=== PATIENT | female | born 1955 | race Caucasian/White ===

== ENCOUNTER 2017-09-22 11:44 | Day surgery (SDC) | payer BC ==
[~2017-09-22 11:44] MED LIST: Lactated Ringers 1,000 ML IV SCH
--- NOTE | 2017-09-22 12:22 | PCM.PREANE ---
Preanesthetic Assessment - Anesthesia/Transfusion/Family Hx Anesthesia History: Prior Anesthesia Without Reaction Family History of Anesthesia Reaction: No Transfusion History: No Prior Transfusion(s) - Review of Systems General: No Symptoms Pulmonary: No Symptoms Cardiovascular: No Symptoms Neurological: No Symptoms Other: Reports: None - Physical Assessment NPO Status Date: 09/21/17 O2 Sat by Pulse Oximetry: 100 Respiratory Rate: 16 Vital Signs: Last Vital Signs Temp 36.7 C 09/22/17 12:05 Pulse 71 09/22/17 12:05 Resp 16 09/22/17 12:05 BP 140/84 09/22/17 12:05 Pulse Ox 100 09/22/17 12:05 Height: 1.63 m Weight: 51.71 kg ASA Class: 3 Mental Status: Alert & Oriented x3 Airway Class: Mallampati = 2 Dentition: Reports: Dentures ROM/Head Extension: Full Lungs: Clear to Auscultation, Normal Respiratory Effort Cardiovascular: Regular Rate, Regular Rhythm - Allergies Allergies/Adverse Reactions: Allergies Allergy/AdvReac Type Severity Reaction Status Date / Time No Known Allergies Allergy Verified 09/17/17 14:13 - Acknowledgements Anesthesia Type Planned: MAC Pt an Appropriate Candidate for the Planned Anesthesia: Yes Alternatives and Risks of Anesthesia Discussed w Pt/Guardian: Yes Pt/Guardian Understands and Agrees with Anesthesia Plan: Yes Additional Comments: PMH: CAD with stent to RCA about 2 years ago. Off plavix x 1 yr, last aspirin was yeswterday, Has hx of cardiomyopathy and CKD3, both of which have resolved. PreAnesthesia Questionnaire HEENT History: Reports: Other (See Below) Other HEENT History: wears glasses, has upper and lower dentures Cardiovascular History: Reports: Heart Failure, High Cholesterol, Hypertension, Stents Other Cardiovascular History: "mitral valve problem" Respiratory History: Reports: Asthma Gastrointestinal History: Reports: Chronic Constipation, Colon Polyp, Hepatitis , Other (See Below) Other Gastrointestinal History: dysphagia hx of Hepatitis B Genitourinary History: Reports: None [employer] History: Reports: Other OB/BYN History: "spotting" for approximately 1.5 years Musculoskeletal History: Reports: Arthritis, Back Pain, Chronic, Fracture, Neck Pain, Chronic Other Musculoskeletal History: hx of fx pelvis Neurological History: Reports: Migraines Psychiatric History: Reports: None Endocrine/Metabolic History: Reports: Osteoporosis Hematologic History: Reports: None Immunologic History: Reports: None Oncologic (Cancer) History: Reports: Other (See Below) Other Oncologic History: States was diagnosed with what was "cancer that cured itself" after having abnormal pap smear and ultrasound Dermatologic History: Reports: None - Infectious Disease History Infectious Disease History: Reports: Chicken Pox, Hepatitis B, Measles, Mumps, Rubella Other Infectious Disease History: had in past - Past Surgical History Head Surgeries/Procedures: Reports: None Cardiovascular Surgical History: Reports: Coronary Artery Stent Other Cardiovascular Surgeries/Procedures: Right Coronary Artery Stent- 2 years ago GI Surgical History: Reports: Cholecystectomy, Colonoscopy Female Surgical History: Reports: D&C, Tubal Ligation - SUBSTANCE USE Smoking Status *Q: Current Every Day Smoker Tobacco Use Within Last Twelve Months: Cigarettes Days Per Week of Alcohol Use: 0 Recreational Drug Use History: No - HOME MEDS Home Medications: Home Meds Aspirin [Halfprin] 81 mg PO DAILY 12/14/15 [History] Folic Acid/Mv,Fe,Min [Centrum Multivitamin] 1 each PO DAILY 12/14/15 [History] Calcium Carbonate [Calcium] 600 mg PO DAILY 09/17/17 [History] Carisoprodol 350 mg PO BEDTIME 09/17/17 [History] Carvedilol 25 mg PO BID 09/17/17 [History] Cyanocobalamin (Vitamin B-12) [Vitamin B-12] 1,000 mg PO DAILY 09/17/17 [History ] Lisinopril [Prinivil] 2.5 mg PO BID 09/17/17 [History] Metoclopramide HCl 10 mg PO ASDIRECTED PRN 09/17/17 [History] Naproxen Sodium [Aleve] 220 mg PO ASDIRECTED 09/17/17 [History] Ranitidine HCl 150 mg PO DAILY 09/17/17 [History] Spironolactone [Aldactone] 12.5 mg PO DAILY 09/17/17 [History] atorvaSTATin Calcium [Atorvastatin Calcium] 20 mg PO BEDTIME 09/17/17 [History] oxyCODONE HCl/Acetaminophen [Percocet 10-325 mg Tablet] 1 - 2 tab PO Q4HR PRN [History] - CURRENT (IN HOUSE) MEDS Current Meds: Current Medications Lactated Ringer's (Ringers, Lactated) 1,000 mls @ 125 mls/hr IV ASDIRECTED REPLACED BY [facility] Last Admin: 09/22/17 12:06 Dose: 125 mls/hr
[2017-09-22] MEDS ORDERED: fentaNYL 100 MCG/2 ML SDV ONE (13:51)
[2017-09-22] MEDS ORDERED: Lidocaine 2% 5 ML SDV ONE (13:51)
[2017-09-22] MEDS ORDERED: Propofol 200 MG/20 ML SDV ONE (13:51)
[2017-09-22] MEDS ORDERED: Midazolam 1 MG/ML 2 ML SDV ONE (13:51)
[2017-09-22] MEDS ORDERED: Ondansetron 4 MG Tab.DIS PO PRN (15:11)
--- NOTE | 2017-09-22 15:14 | PCM.OPNOTE ---
- General Post-Op/Procedure Note Date of Surgery/Procedure: 09/22/17 Operative Procedure(s): Esophagogastroduodenoscopy with biopsy. Colonoscopy. Pre Op Diagnosis: Dysphagia. Personal history of colon polyps. Post-Op Diagnosis: Mild gastritis with a hiatal hernia. Sigmoid diverticulosis. Anesthesia Technique: MAC (ASA III) Primary Surgeon: Jamil Wiggins Mesh Worker: Dequan Mike Condition: Good Free Text/Narrative:: Dictation [id number] CPT CODE [id number]
[2017-09-22] MEDS ORDERED: Lactated Ringers 1,000 ML IV SCH (15:15)
--- NOTE | 2017-09-22 15:31 | PCM.POSTAN ---
POST ANESTHESIA ASSESSMENT - MENTAL STATUS Mental Status: Alert, Oriented Free Text/Narrative:: awake and alert to her phase II. - RESPIRATORY Respiratory Status: Respiratory Rate WNL, Airway Patent, O2 Saturation Stable - CARDIOVASCULAR CV Status: Pulse Rate WNL, Blood Pressure Stable - GASTROINTESTINAL GI Status: No Symptoms - POST OP HYDRATION Hydration Status: Adequate & Stable
--- NOTE | 2017-09-22 15:45 | PCM48HPAN ---
Post Anesthesia Note - EVALUATION WITHIN 48HRS OF ANESTHETIC Vital Signs in Normal Range: Yes Patient Participated in Evaluation: Yes Respiratory Function Stable: Yes Airway Patent: Yes Cardiovascular Function Stable: Yes Hydration Status Stable: Yes Pain Control Satisfactory: Yes Nausea and Vomiting Control Satisfactory: Yes Mental Status Recovered: Yes Resp Rate: 12 - COMMENTS/OBSERVATIONS Free Text/Narrative:: Raised question of some discomfort on right abdomen...informed Dr. Wiggins. Patient stated she had this pain before the procedure. Should be ready for discharge home soon.
[2017-09-22 15:48] VITALS: BP 152/79
--- NOTE | 2017-09-23 07:54 | OR ---
SURGEON: Jamil Wiggins M.D. DATE OF PROCEDURE: 09/22/2017 OPERATION PERFORMED: Esophagogastroduodenoscopy with biopsy. ANESTHESIA: MAC [employer] CLASSIFICATION: III. PREOPERATIVE DIAGNOSIS: Progressive dysphagia. POSTOPERATIVE DIAGNOSIS: Mild gastritis, no esophageal stricture. DESCRIPTION OF PROCEDURE: The patient was taken to the endoscopy room, positioned on the endoscopy table in the left lateral decubitus position. Time-out was called for appropriate identification of the patient and procedure. Monitored anesthesia care was provided. The bite block was placed between the patient's teeth. The gastroscope was inserted through the bite block into the oropharynx and advanced without difficulty through the esophagus and stomach into the duodenum, where examination was carried out in a retrograde fashion. The duodenum shows no acute inflammatory changes or ulcerations. Stomach does show [id number] gastritis. No ulcerations were noted. Biopsies of the stomach were obtained to look for the presence of Helicobacter pylori. The gastroscope was then retroflexed to visualize the proximal stomach, where a small hiatal hernia was seen. The gastroscope was then straightened and slowly withdrawn. The GE junction was well defined and shows no acute inflammatory changes. The esophagus demonstrated good contractility. No mid or proximal lesions were identified, and there was no esophageal stricture. The vocal cords were visualized as the scope was withdrawn and noted to move symmetrically. The gastroscope was then removed with the patient having tolerated the procedure well. Following colonoscopy, she was taken to recovery room in stable condition. MATIAS / MOIRA /[id number]
--- NOTE | 2017-09-23 07:57 | OR ---
SURGEON: Jamil Wiggins M.D. DATE OF PROCEDURE: 09/22/2017 OPERATION PERFORMED: Colonoscopy. ANESTHESIA: MAC. ASA CLASSIFICATION: III. PREOPERATIVE DIAGNOSIS: Personal history of colon polyps. POSTOPERATIVE DIAGNOSIS: Sigmoid diverticulosis. DESCRIPTION OF PROCEDURE: With the patient having completed esophagogastroduodenoscopy with biopsy, she was now prepared for colonoscopy. The colonoscope was inserted into the rectum and advanced with moderate difficulty to the cecum, where the colonoscope was retroflexed to visualize the ascending colon from below. The colonoscope was then straightened and slowly withdrawn. The cecum, ascending colon, hepatic flexure, transverse colon, splenic flexure, and descending colon showed no tumors, polyps, diverticula, or angiodysplastic changes. The prep was excellent. Sigmoid colon demonstrates numerous diverticula. No stricture, spasm, or bleeding was noted. No polyps were encountered. The colonoscope was withdrawn to the rectum and retroflexed to visualize the anal orifice from above. Again, no tumors or polyps were seen, and there were no acute hemorrhoidal changes. The colonoscope was then straightened, the rectum aspirated, and colonoscope removed. The patient tolerated the procedure well and was taken to recovery room in stable condition. MATIAS / MOIRA /[id number]
== END 2017-09-22 15:55 | disposition home or self-care (01) ==
LOC: MW.SDS 11:44
PROVIDERS: ATTEND Surgery
DX: Z12.11 Encounter for screening for malignant neoplasm of colon (principal); K29.50 Unspecified chronic gastritis without bleeding; K57.30 Diverticulosis of large intestine without perforation or abscess without bleeding; K44.9 Diaphragmatic hernia without obstruction or gangrene; I25.10 Atherosclerotic heart disease of native coronary artery without angina pectoris; G89.29 Other chronic pain; M54.9 Dorsalgia, unspecified; M54.2 Cervicalgia; M25.551 Pain in right hip; I10 Essential (primary) hypertension; E78.00 Pure hypercholesterolemia, unspecified; Z86.010 Personal history of colon polyps; Z79.82 Long term (current) use of aspirin; Z79.899 Other long term (current) drug therapy; Z87.891 Personal history of nicotine dependence
CPT/HCPCS: 43239; 45378; J2250; J3010; J7120; 00813; 88305; 88312; J2704

== ENCOUNTER 2021-07-29 12:58 | Emergency (ER) | payer BC, MEDICARE ==
[2021-07-29] MEDS ORDERED: Sodium Chloride 0.9% 1,000 ML IV ONE (14:26)
[2021-07-29] MEDS ORDERED: Ondansetron 4 MG/2 ML SDV IVPUSH ONE (14:50)
[2021-07-29] MEDS ORDERED: Ketorolac 30 MG/ML SDV IVPUSH ONE (14:50)
[2021-07-29 15:10] LABS: CORONAVIRUS COVID-19 NAA NEGATIVE (NEGATIVE); INFLUENZA A NAA NEGATIVE (NEGATIVE); INFLUENZA B NAA NEGATIVE (NEGATIVE)
[2021-07-29 15:19] LABS: BLOOD UREA NITROGEN,BUN 11 mg/dL (7.0-18.0); CARBON DIOXIDE,CO2 23.7 mmol/L (21.0-32.0); CHLORIDE,CL 103 mmol/L (98-107); GLUCOSE RANDOM 110 mg/dL (74-106); LIPASE 67 U/L (73-393); POTASSIUM,K 3.3 mmol/L (3.5-5.1); SODIUM,NA 140 mmol/L (136-145)
[2021-07-29 16:29] VITALS: BP 140/90; PULSE 90
== END 2021-07-29 16:31 | disposition home or self-care (01) ==
LOC: MW.ED 12:58
DX: K52.9 Noninfective gastroenteritis and colitis, unspecified (principal); I11.0 Hypertensive heart disease with heart failure; I50.9 Heart failure, unspecified; E78.00 Pure hypercholesterolemia, unspecified; J45.909 Unspecified asthma, uncomplicated; M19.90 Unspecified osteoarthritis, unspecified site; Z72.0 Tobacco use; Z79.82 Long term (current) use of aspirin; Z79.899 Other long term (current) drug therapy; Z20.822 Contact with and (suspected) exposure to COVID-19
CPT/HCPCS: 0240U; 36415; 71045; 80053; 83690; 85025; 96374; 96375; 99284; J1885; J2405; J7030

== ENCOUNTER 2023-03-28 07:32 | Emergency (ER) | payer BC, MEDICARE ==
[2023-03-28] MEDS ORDERED: Sodium Chloride 0.9% 1,000 ML IV ONE ×3 (07:34→07:46)
[2023-03-28] MEDS ORDERED: Rocuronium 50 MG/5 ML Vial IV ONE ×2 (07:36→09:35)
[2023-03-28] MEDS ORDERED: Etomidate 2 MG/ML 10 ML SDV IVPUSH ONE (07:36)
[2023-03-28 07:44] LABS: BASOPHILS PERCENT AUTO 0.5 % (0.0-1.5); EOSINOPHILS ABSOLUTE AUTO 0.5 K/uL (0.0-0.7); EOSINOPHILS PERCENT AUTO 8.5 % (0.0-7.0); HEMATOCRIT 43.8 % (36.0-46.0); LYMPHOCYTES PERCENT AUTO 35.5 % (16.0-40.0); MEAN CORPUSCULAR HEMOGLOBIN 32.3 pg (27.0-32.0); MEAN CORPUSCULAR HGB CONC 34.2 g/dL (31.0-37.0); MEAN CORPUSCULAR VOLUME 94.2 fL (80.0-98.0); MONOCYTES ABSOLUTE AUTO 0.3 K/uL (0.0-0.8); MONOCYTES PERCENT AUTO 5.9 % (0.0-15.0); NEUTROPHILS ABSOLUTE AUTO 2.9 K/uL (1.4-5.7); NEUTROPHILS PERCENT AUTO 49.6 % (48.0-80.0); NRBC ABSOLUTE 0 K/uL; PLATELET COUNT,PLT 138 K/uL (150-400); RED BLOOD CELL COUNT 4.65 M/uL (4.30-5.90); WHITE BLOOD CELL COUNT,WBC 5.75 K/uL (4.0-11.0)
[2023-03-28] MEDS ORDERED: Norepinephrine Bit/D5W Premix 250 ML IV SCH (07:45)
[2023-03-28] MEDS ORDERED: propofoL 100 ML IV SCH (07:45)
[2023-03-28] MEDS ORDERED: Norepinephrine Bit/D5W Premix 250 ML IV ONE (07:45)
[2023-03-28 07:54] LABS: INR 1.34 (0.86-1.11); PTT,PARTIAL THROMBOPLSTIN TIME 47.8 SEC (23.9-30.7)
[2023-03-28 08:02] LABS: A/G RATIO 1.1 (0.9-1.6); ALANINE AMINOTRANSFERASE,ALT 26 IU/L (14-63); ALBUMIN 3.3 g/dL (3.4-5.0); ALKALINE PHOSPHATASE 59 U/L (46-116); ASPARTATE AMNIOTRANSFERASE,AST 49 IU/L (15-37); BILIRUBIN TOTAL 0.5 mg/dL (0.2-1.0); BLOOD UREA NITROGEN,BUN 18 mg/dL (7.0-18.0); CALCIUM 8.5 mg/dL (8.5-10.1); CHLORIDE,CL 108 mmol/L (98-107); ETHANOL BLOOD MEDICAL <3 mg/dL; GLUCOSE RANDOM 145 mg/dL (74-106); LIPASE 34 U/L (16-77); MAGNESIUM 1.9 mg/dL (1.8-2.4); POTASSIUM,K 4.2 mmol/L (3.5-5.1); PROTEIN TOTAL,TP 6.2 g/dL (6.4-8.2); SODIUM,NA 141 mmol/L (136-145)
[2023-03-28 08:03] LABS: ESTIMATED GFR 61 mL/min (>60)
[2023-03-28 08:34] LABS: BASE EXCESS ARTERIAL -2.8 (-2.0-3.0); BICARBONATE,ARTERIAL 23 mEq/L (22-26); PCO2 ARTERIAL 41 mmHG (35-45); PO2 ARTERIAL 172 mmHG (80-105)
[2023-03-28] MEDS ORDERED: Iopamidol 755 MG/ML 500 ML Multipack Bottle IVPUSH STA (08:39)
[2023-03-28] MEDS: fentaNYL 100 MCG/2 ML SDV IVPUSH PRN ×2 (08:46→09:26)
[2023-03-28 08:47] LABS: APPEARANCE,URINE SLT CLOUDY; GLUCOSE,URINE 100 mg/dL (NEGATIVE); KETONES,URINE NEGATIVE (NEGATIVE); LEUKOCYTE ESTERASE,URINE NEGATIVE (NEGATIVE); NITRITE,URINE POSITIVE (NEGATIVE); OCCULT BLOOD,URINE MODERATE (NEGATIVE); PH,URINE 7.5 (5.0-8.0); PROTEIN,URINE >=300 mg/dL (NEGATIVE); UROBILINOGEN,URINE 0.2 EU/dL (<2.0)
[2023-03-28 08:54] LABS: AMPHETAMINES SCREEN, URINE NEGATIVE (CUTOFF=500); BARBITURATE SCREEN,URINE NEGATIVE (CUTOFF=200); BENZODIAZEPINES SCREEN,URINE NEGATIVE (CUTOFF=150); BUPRENORPHINE SCREEN,URINE NEGATIVE (CUTOFF=10); METHADONE SCREEN, URINE NEGATIVE (CUTOFF=200); METHAMPHETAMINES SCREEN, URINE NEGATIVE (CUTOFF=500); OXYCODONE SCREEN,URINE NEGATIVE (CUT0FF=100); PCP SCREEN,URINE NEGATIVE (CUTOFF=25); PROPOXYPHENE SCREEN,URINE NEGATIVE (CUTOFF=300); THC SCREEN,URINE 20 NG/ML PRESUMPTIVE POSITIVE (CUTOFF=50)
[2023-03-28 08:56] LABS: BILIRUBIN,URINE SMALL (NEGATIVE); COLOR,URINE ORANGE
[2023-03-28 08:58] LABS: BACTERIA,URINE RARE (NEGATIVE); EPITHELIAL CELLS,URINE OCCASIONAL (NONE-FEW); RBC,URINE 60-80 (0-2/HPF)
[2023-03-28] MEDS ORDERED: Tranexamic Acid IN NACL,ISO-OS 1,000 MG in Premix Bag 1 BAG IV ONE ×2 (09:22)
[2023-03-28] MEDS ORDERED: Tranexamic Acid IN NACL,ISO-OS 1,000 MG in Premix Bag 1 BAG IV SCH ×2 (09:30)
[2023-03-28] MEDS ORDERED: fentaNYL/Normal Saline 2,500 MCG in Premix Bag 1 BAG IV PRN (09:36)
[2023-03-28] MEDS ORDERED: EPINEPHrine 1:10,000 1 MG/10 ML Syringe IVPUSH ONE ×8 (10:03→10:42)
[2023-03-28] MEDS ORDERED: Sodium Bicarbonate 8.4% 50 MEQ/50 ML Syringe IVPUSH ONE (10:12)
[2023-03-28] MEDS ORDERED: Amiodarone 150 MG/3 ML SDV IVPUSH ONE ×2 (10:14)
[2023-03-28] MEDS ORDERED: Sodium Chloride 3% 500 ML IV STA (10:17)
[2023-03-28] MEDS ORDERED: Sodium Chloride 3% 500 ML IV ONE (10:30)
[2023-03-28 11:11] VITALS: BP 124/119; PULSE 97
== END 2023-03-28 12:24 | disposition expired ==
LOC: MW.ED 07:32
DX: S06.5X0A Traumatic subdural hemorrhage without loss of consciousness, initial encounter (principal); S02.85XA Fracture of orbit, unspecified, initial encounter for closed fracture; S02.19XA Other fracture of base of skull, initial encounter for closed fracture; S02.609A Fracture of mandible, unspecified, initial encounter for closed fracture; S06.A1XA Traumatic brain compression with herniation, initial encounter; I11.0 Hypertensive heart disease with heart failure; I50.9 Heart failure, unspecified; E78.00 Pure hypercholesterolemia, unspecified; Z79.82 Long term (current) use of aspirin; Z79.899 Other long term (current) drug therapy; Z90.49 Acquired absence of other specified parts of digestive tract; W10.9XXA Fall (on) (from) unspecified stairs and steps, initial encounter
CPT/HCPCS: 31500; 36415; 36430; 36600; 43752; 51702; 70450; 70486; 71045; 71260; 72125; 72128; 72131; 74177; 80053; 80305; 80307; 81001; 82803; 83690; 83735; 84484; 85025; 85610; 85730; 86850; 86900; 86901; 86920; 92950; 92960; 93005; 96374; 99291; 99292; G0390; J0171; J0282; J2704; J3010; J7030; J7131; P9016; Q9967; 93010; 99285; J3490